=== PATIENT | female | born 1945 | race Two or more races ===

== ENCOUNTER 2018-04-23 15:11 | Emergency (ER) | payer MEDICAID, MEDICARE, OTHER ==
[~2018-04-23] VITALS: Ht 152.4 cm; Wt 55.5 kg
[2018-04-23 15:15] VITALS: BP 150/70
[2018-04-23] MEDS ORDERED: BACITRACIN ZINC OINT 500U/GM, 0.9 GM ONE (15:57)
== END 2018-04-23 16:22 | disposition home or self-care (01) ==
LOC: ED 15:41
DX: S50.01XA Contusion of right elbow, initial encounter (principal); S60.211A Contusion of right wrist, initial encounter; S80.212A Abrasion, left knee, initial encounter; S80.211A Abrasion, right knee, initial encounter; E11.9 Type 2 diabetes mellitus without complications; W01.0XXA Fall on same level from slipping, tripping and stumbling without subsequent striking against object, initial encounter; Y93.01 Activity, walking, marching and hiking; Y92.098 Other place in other non-institutional residence as the place of occurrence of the external cause; Y99.8 Other external cause status
CPT/HCPCS: 99284